=== PATIENT | male | born 1955 | race Caucasian/White ===

== ENCOUNTER 2023-12-20 20:35 | Emergency (ER) | payer OTHER, SELFPAY ==
--- NOTE | 2023-12-20 20:44 | DI.RAD.S_ITS ---
PROCEDURE: XR FOOT RT MIN 3V INDICATIONS: Pain,injury TECHNIQUE: 3 views of the foot were acquired. COMPARISON: None. FINDINGS: Bones: Suspected subluxation of the 5th MTP. No displaced fracture identified. Minimal 1st MTP degenerative changes. Multiple small bone fragments are seen adjacent to the 1st interphalangeal joint. Soft tissues: No suspicious calcifications. IMPRESSION: Multiple small bone fragments adjacent to the 1st interphalangeal joint, age indeterminate, possibly from avulsion injury. Correlate with tenderness. Possible subluxation of the 5th MTP versus positional artifact. If there is high concern for occult injury, consider repeat radiography or cross-sectional imaging. Dictated by: Jose Roberto Humphrey M.D. on 12/20/2023 at 21:11 Approved by: Jose Roberto Humphrey M.D. on 12/20/2023 at 21:13
[2023-12-20 20:51] VITALS: BP 147/77; PULSE 69; RESP 16; TEMP 36.8; O2SAT 98; BMI 23.7
[2023-12-20 20:55] VITALS: PULSE 69
--- NOTE | 2023-12-20 21:06 | ED.LOWEXIN ---
HPI - Extremity Injury (Lower) General Chief Complaint: Extremity Injury, Lower Stated Complaint: THINKS RT FOOT MAY BE BROKEN Time Seen by Provider: 12/20/23 20:48 Source: patient Mode of arrival: Ambulatory History of Present Illness HPI Narrative: 68-year-old male presents for evaluation of right foot injury. He was playing volleyball when he thinks that he landed incorrectly on his foot. He was notice progressive pain and bruising. He was able to ambulate, but it he has persistent pain. His primary care doctor referred him to the emergency department for x-rays. Review of Systems Review of Systems Narrative: See HPI Patient History Social History Smoking Status: Never smoker Smoking Status: Never smoker Substance Use Type: does not use Exam Initial Vital Signs Initial Vital Signs: Vital Signs Temperature 98.2 F 12/20/23 20:51 Pulse Rate 69 12/20/23 20:51 Respiratory Rate 16 12/20/23 20:51 Blood Pressure 147/77 H 12/20/23 20:51 Pulse Oximetry 98 12/20/23 20:51 Oxygen Delivery Method Room Air 12/20/23 20:51 Const: Awake, alert, no acute distress, nontoxic appearing MSK: No deformity, bruising over dorsum of right foot, palpable pulses Skin: Warm, Dry, intact, no rashes Neuro: AO x3, CN II-XII grossly intact, moves all extremities Course Orders Ordered: ED Orders 12/20/23 20:44 XR foot RT min 3V Stat Vital Signs Vital signs: Vital Signs - 8 hr 12/20/23 20:51 12/20/23 20:55 Temperature 98.2 F Pulse Rate 69 Pulse Rate [Right Dorsalis Pedis] 69 Respiratory Rate 16 Blood Pressure 147/77 H Pulse Oximetry 98 Oxygen Delivery Method Room Air MDM - Extremity Injury (Lower) Differential Diagnosis Differential diagnosis: Likely ankle sprain and strain, acute internal derangement of knee and fracture of femur MDM Narrative Medical decision making narrative: Persistent R foot pain. Negative XR. Patient relieved to know that his XR is negative. Will continue to treat conservatively Discharge Plan Departure Patient Disposition: Home Clinical Impression: Foot sprain Instructions: DI for Foot Sprain Activity Restrictions/Additional Instructions: Take tylenol and ibuprofen as needed for pain. Stand Alone Forms: Patient Portal/API
[2023-12-20 22:14] VITALS: BP 140/81; PULSE 63; RESP 16; O2SAT 98
== END 2023-12-20 22:18 | disposition home or self-care (01) ==
PROVIDERS: Emergency Provider Emergency Medicine
DX: S93.601A Unspecified sprain of right foot, initial encounter (principal); X58.XXXA Exposure to other specified factors, initial encounter; Y93.68 Activity, volleyball (beach) (court)
CPT/HCPCS: 73630; 99281; 99282